=== PATIENT | male | born 2000 | race Hispanic/Latino ===

== ENCOUNTER 2023-04-21 16:40 | Inpatient (IN) | payer OTHER ==
[2023-04-21] VITALS (24 sets, daily range): BP systolic 126–149; BP diastolic 55–88; PULSE 69–102; RESP 11–17; O2SAT 97
[~2023-04-21] VITALS: Ht 160 cm; Wt 84.5 kg
[2023-04-21] MEDS ORDERED: CEFAZOLIN SODIUM 2 GM VIAL ONE ×2 (16:50→20:20)
[2023-04-21] MEDS ORDERED: MORPHINE 4 MG SYG ONE (16:50)
[2023-04-21 17:09] LABS: MEAN CORPUSCULAR HEMOGLOBIN 31.9 pg (27.0-33.0); MEAN CORPUSCULAR HGB CONC 35.3 g/dL (32.0-36.0); MEAN CORPUSCULAR VOLUME 90.5 fL (80-100); PLATELET COUNT (AUTO) 223 K/uL (130-400); RED BLOOD CELL COUNT(AUTO) 4.42 MIL/uL (4.50-6.20); RED CELL DISTRIBUTION WIDTH 12.7 % (11.0-15.5); WHITE BLOOD COUNT (AUTO) 12.1 K/uL (4.8-10.8)
[2023-04-21 17:17] LABS: INR 0.94 (0.85-1.15)
[2023-04-21 17:18] LABS: PARTIAL THROMBOPLASTIN TIME 26.9 SEC (26.3-35.5)
[2023-04-21 17:29] LABS: BASOPHILS # (AUTO) 0.06 K/uL (0.00-0.20); BASOPHILS % (AUTO) 0.5 % (0.0-5.0); EOSINOPHILS # (AUTO) 0.57 K/uL (0.00-0.70); EOSINOPHILS % (AUTO) 4.6 % (0.0-8.0); IMMATURE GRANULOCYTE ABSOLUTE 0.05 K/uL (0-1); LYMPHOCYTES # (AUTO) 4.3 K/uL (1.0-4.8); LYMPHOCYTES % (AUTO) 35.3 % (21.0-51.0); MONOCYTES # (AUTO) 0.7 K/uL (0.1-1.0); MONOCYTES % (AUTO) 5.6 % (3.0-13.0); NEUTROPHILS # (AUTO) 6.6 K/uL (1.8-7.7); NEUTROPHILS % (AUTO) 53.6 % (40.0-77.0)
[2023-04-21] MEDS ORDERED: KETOROLAC 15MG/ML VIAL (15MG/ML) ONE (17:50)
[2023-04-21] MEDS ORDERED: FENTANYL CITRATE PF 50 MCG/1 ML 5ML AMP IV ONE (17:51)
[2023-04-21] MEDS ORDERED: PROPOFOL 10 MG/ML 20ML VIAL IV ONE (17:51)
[2023-04-21 17:58] LABS: ALBUMIN 3.8 g/dL (3.5-5.0); BILIRUBIN,TOTAL 0.3 mg/dL (0.2-1.0); CREATININE 0.9 mg/dL (0.5-1.5); TOTAL PROTEIN, SERUM 7.1 g/dL (6.0-8.3)
[2023-04-21] MEDS ORDERED: KETOROLAC 15MG/ML VIAL (15MG/ML) IV PRN (18:00)
[2023-04-21] MEDS ORDERED: ACETAMINOPHEN 500 MG TABLET PO PRN (18:00)
[2023-04-21] MEDS ORDERED: ONDANSETRON 4MG INJ ONE ×2 (18:03→19:53)
[2023-04-21] MEDS ORDERED: MIDAZOLAM HCL 1 MG/ML 2ML VIAL ONE (18:03)
[2023-04-21 18:13] LABS: APPEARANCE,URINE CLEAR (CLEAR); BILIRUBIN,URINE NEGATIVE (NEGATIVE); COLOR,URINE LIGHT-YELLOW (YELLOW); GLUCOSE, URINE (UA) NEGATIVE (NEGATIVE); KETONES,URINE NEGATIVE (NEGATIVE); LEUKOCYTE ESTERASE ,URINE NEGATIVE Leu/uL (NEGATIVE); NITRATE,URINE NEGATIVE (NEGATIVE); OCCULT BLOOD,URINE NEGATIVE (NEGATIVE); PH,URINE 5.5 (5.0-8.0); PROTEIN,URINE NEGATIVE (NEGATIVE); UROBILINOGEN,URINE 0.2 mg/dL (0.2-1.0)
[2023-04-21 18:16] LABS: ADD UA MICROSCOPIC YES
[2023-04-21 18:18] LABS: AMPHET/METH SCREEN,URINE NEGATIVE (NEGATIVE); BARBITURATE SCREEN, URINE NEGATIVE (NEGATIVE); BENZODIAZEPINES SCREEN,URINE NEGATIVE (NEGATIVE); CANNABINOID SCREEN,URINE POSITIVE (NEGATIVE); COCAINE SCREEN,URINE NEGATIVE (NEGATIVE); OPIATE SCREEN,URINE NEGATIVE (NEGATIVE); PHENCYCLIDINE SCREEN,URINE NEGATIVE (NEGATIVE); RBC,URINE 0-1 /HPF (0-1); WBC,URINE 0-1 /HPF (0-1)
[2023-04-21] MEDS ORDERED: ROCURONIUM 10MG/1ML SYR 10 MG/ML ML ONE (18:21)
[2023-04-21] MEDS ORDERED: POTASSIUM CHLORIDE 20MEQ/100ML 100 ML IV PRN (18:30)
[2023-04-21] MEDS ORDERED: KCL 20 MEQ ERTAB PO PRN (18:30)
[2023-04-21] MEDS ORDERED: MAGNESIUM 2GM PREMIX 50ML 50 ML IV SCH (18:30)
[2023-04-21] MEDS ORDERED: MORPHINE PF 100MG/10ML AMP IV ONE (18:31)
[2023-04-21] MEDS ORDERED: POTASSIUM CHLORIDE 20MEQ/100ML 200 ML IV ONE (18:45)
[2023-04-21] MEDS ORDERED: NEOSTIGMINE 5MG/5ML SYR IV ONE (19:18)
[2023-04-21] MEDS ORDERED: GLYCOPYRROLATE 1 MG/5 ML SYRINGE ONE (19:18)
[2023-04-21] MEDS ORDERED: FENTANYL CITRATE PF 50 MCG/1 ML 2ML VIAL ONE (19:19)
[2023-04-21] MEDS ORDERED: MEPERIDINE-PF 25 MG/ML SYG ONE (19:52)
[2023-04-21] MEDS: 0.9%NACL 1000ML 1,000 ML IV SCH (21:11)
[2023-04-21] MEDS: PANTOPRAZOLE 40 MG/VIAL IVP SCH (21:11)
[2023-04-21] MEDS: ONDANSETRON 4MG INJ IVP PRN (21:32)
[2023-04-21] MEDS: POTASSIUM CHLORIDE 10% ELIXIR 20 MEQ/15 ML UDCUP PO PRN (22:10)
[2023-04-22] VITALS (8 sets, daily range): BP systolic 115–148; BP diastolic 53–90; PULSE 65–89; RESP 17–20; O2SAT 97–100
[2023-04-22] MEDS: POTASSIUM CHLORIDE 10% ELIXIR 20 MEQ/15 ML UDCUP PO PRN ×2 (00:09→02:01)
[2023-04-22] MEDS: CEFAZOLIN SODIUM 2 GM VIAL IVPB SCH ×2 (02:00→12:02)
[2023-04-22] MEDS ORDERED: MORPHINE 2 MG SYG IVP PRN (05:30)
[2023-04-22] MEDS ORDERED: PHARMACY COMMUNICATION MISC PRN (05:30)
[2023-04-22] MEDS ORDERED: CHLORDIAZEPOXIDE HCL 25 MG CAP PO PRN (05:30)
[2023-04-22 05:39] LABS: BASOPHILS # (AUTO) 0.06 K/uL (0.00-0.20); BASOPHILS % (AUTO) 0.5 % (0.0-5.0); EOSINOPHILS # (AUTO) 0.34 K/uL (0.00-0.70); EOSINOPHILS % (AUTO) 2.8 % (0.0-8.0); HEMATOCRIT 36.2 % (42-54); IMMATURE GRANULOCYTE ABSOLUTE 0.04 K/uL (0-1); LYMPHOCYTES # (AUTO) 1.8 K/uL (1.0-4.8); LYMPHOCYTES % (AUTO) 14.6 % (21.0-51.0); MEAN CORPUSCULAR HEMOGLOBIN 31.8 pg (27.0-33.0); MEAN CORPUSCULAR HGB CONC 33.7 g/dL (32.0-36.0); MEAN CORPUSCULAR VOLUME 94.3 fL (80-100); MONOCYTES # (AUTO) 0.9 K/uL (0.1-1.0); MONOCYTES % (AUTO) 7.8 % (3.0-13.0); NEUTROPHILS # (AUTO) 8.8 K/uL (1.8-7.7); PLATELET COUNT (AUTO) 197 K/uL (130-400); RED BLOOD CELL COUNT(AUTO) 3.84 MIL/uL (4.50-6.20); RED CELL DISTRIBUTION WIDTH 12.7 % (11.0-15.5)
[2023-04-22 06:08] LABS: HEMOGLOBIN A1C 5.5 % (4.0-6.0)
[2023-04-22 06:11] LABS: ALBUMIN 3.4 g/dL (3.5-5.0); BILIRUBIN,TOTAL 0.9 mg/dL (0.2-1.0); MAGNESIUM 2.6 mg/dL (1.80-2.40); POTASSIUM 4.3 mmol/L (3.5-5.1); THYROID STIMULATING HORMONE 1.29 uIU/mL (0.36-3.74); TOTAL PROTEIN, SERUM 6.6 g/dL (6.0-8.3)
[2023-04-22] MEDS ORDERED: FENTANYL CITRATE PF 50 MCG/1 ML 5ML AMP IV ONE (06:46)
[2023-04-22 14:17] LABS: HEPATITIS A IGM ANTIBODY Non-Reactive (Nonreactive); HEPATITIS B CORE IGM ANTIBODY Non-Reactive (Negative); HEPATITIS B SURFACE ANTIGEN Non-Reactive (Nonreactive); HEPATITIS C ANTIBODY Non-Reactive (Nonreactive)
[2023-04-22] MEDS: PANTOPRAZOLE 40 MG/VIAL IVP SCH (18:40)
[2023-04-22] MEDS: 0.9%NACL 1000ML 1,000 ML IV SCH ×2 (20:40→20:50)
[2023-04-22] MEDS: ONDANSETRON 4MG INJ IVP PRN (20:50)
[2023-04-23 03:31] LABS: HEMATOCRIT 34.6 % (42-54); MEAN CORPUSCULAR HEMOGLOBIN 31.7 pg (27.0-33.0); MEAN CORPUSCULAR HGB CONC 34.4 g/dL (32.0-36.0); MEAN CORPUSCULAR VOLUME 92.3 fL (80-100); RED BLOOD CELL COUNT(AUTO) 3.75 MIL/uL (4.50-6.20); RED CELL DISTRIBUTION WIDTH 12.7 % (11.0-15.5); WHITE BLOOD COUNT (AUTO) 10.6 K/uL (4.8-10.8)
[2023-04-23 03:50] LABS: ALBUMIN 3.2 g/dL (3.5-5.0); BILIRUBIN,TOTAL 0.8 mg/dL (0.2-1.0); MAGNESIUM 2.1 mg/dL (1.80-2.40); POTASSIUM 3.6 mmol/L (3.5-5.1); TOTAL PROTEIN, SERUM 6.5 g/dL (6.0-8.3)
[2023-04-23 04:00] VITALS: BP 138/68; PULSE 67; RESP 19
[2023-04-23 07:45] VITALS: BP 142/76; PULSE 63; RESP 18
[2023-04-23 07:53] VITALS: O2SAT 100
[2023-04-23 12:00] VITALS: BP 135/63; PULSE 70; RESP 18
[2023-04-23] MEDS ORDERED: LACTULOSE 20 GM/30 ML UDCUP PO ONE (13:00)
[2023-04-23 16:00] VITALS: BP 121/69; PULSE 68; RESP 18
[2023-04-23] MEDS: PANTOPRAZOLE 40 MG/VIAL IVP SCH (18:00)
== END 2023-04-23 19:50 | disposition home or self-care (01) | DRG 506 ==
LOC: EEVIPCON 16:40 → EDH 16:40 → EDHIP 16:41 → UNDOADMIN 17:30 → 3AH 20:58 → EDHIP 20:58
PROVIDERS: ADMIT Surgery; ATTEND Surgery
PROC: 0RCN0ZZ Extirpation of Matter from Right Wrist Joint, Open Approach (ICD-10-PCS; principal; 2023-04-21 18:38)
DX: S52.591A Other fractures of lower end of right radius, initial encounter for closed fracture (principal); B17.9 Acute viral hepatitis, unspecified; M62.82 Rhabdomyolysis; D62 Acute posthemorrhagic anemia; E66.9 Obesity, unspecified; E87.6 Hypokalemia; F12.90 Cannabis use, unspecified, uncomplicated; W34.00XA Accidental discharge from unspecified firearms or gun, initial encounter; D72.829 Elevated white blood cell count, unspecified; Y93.89 Activity, other specified; Y92.89 Other specified places as the place of occurrence of the external cause; Y99.8 Other external cause status; Z68.33 Body mass index [BMI] 33.0-33.9, adult
CPT/HCPCS: 36415; 71045; 73100; 80053; 80074; 80305; 81001; 82550; 83036; 83735; 84443; 85025; 85027; 85610; 85730; 86850; 86900; 86901; 88300; 96374; 96375; A4344; A4606; C9113; G0378; J1885; J2175; J2250; J2270; J2274; J2405; J2704; J2710; J3010; J3475; J3480; J3490; A5113; A6223; G8980-CH; G8983-CH; J0690; Q4050

== ENCOUNTER 2023-04-25 15:34 | Emergency (ER) | payer OTHER ==
[~2023-04-25] VITALS: Ht 167.6 cm; Wt 70.8 kg
[2023-04-25 15:51] VITALS: BP 121/67; PULSE 73; RESP 17
== END 2023-04-25 17:25 | disposition home or self-care (01) ==
LOC: EDH 15:34
DX: S61.531D Puncture wound without foreign body of right wrist, subsequent encounter (principal); Z98.890 Other specified postprocedural states; X58.XXXD Exposure to other specified factors, subsequent encounter
CPT/HCPCS: 99282